=== PATIENT | female | born 1960 | race Caucasian/White ===

== ENCOUNTER 2018-10-16 10:51 | Emergency (ER) | payer MEDICAID ==
[~2018-10-16] VITALS: Ht 154.9 cm; Wt 81.6 kg
[2018-10-16 10:57] VITALS: BP_SYST 144
--- NOTE | 2018-10-16 11:25 | NUR ---
Placed in room 7. Placed on cardiac catheterization technician, blood pressure machine and pulse oximeter. To gown for exam. Side rails up. Report given to Broderick BAEZ.
[2018-10-16 11:28] LABS: BASOPHILS % (AUTO) 0.5 % (0.0-2.0); EOSINOPHILS # (AUTO) 0.1 K/uL (0.0-0.4); EOSINOPHILS % (AUTO) 0.9 % (0.0-4.0); HEMATOCRIT 44.2 % (36-48); HEMOGLOBIN 14.6 g/dL (12.0-16.0); LYMPHOCYTES # (AUTO) 2.5 K/uL (1.0-5.5); LYMPHOCYTES % (AUTO) 34.2 % (20.5-51.5); MEAN CORPUSCULAR HEMOGLOBIN 30 pg (27-31); MEAN CORPUSCULAR HGB CONC 33 % (32-36); MEAN CORPUSCULAR VOLUME 90 fL (79.0-98.0); MONOCYTES # (AUTO) 0.4 K/uL (0.0-1.0); MONOCYTES % (AUTO) 5.6 % (1.7-9.3); NEUTROPHILS # (AUTO) 4.4 K/uL (1.8-7.7); NEUTROPHILS % (AUTO) 58.8 % (40.0-70.0); PLATELET COUNT (AUTO) 239 K/uL (130-430); RED CELL DISTRIBUTION WIDTH 12.6 % (9.0-15.0); WHITE BLOOD COUNT (AUTO) 7.4 K/uL (4.8-10.8)
--- NOTE | 2018-10-16 11:40 | NUR ---
PATIENT SITTING UP ON BED. AAOX4. RESPIRATIONS EVEN AN DUNLABORED. NO SOB AT THIS TIME. SPEAKING FULL SENTENCES. PT WITH C/O ACHING JAW PAIN WHICH RADIATES TO THE LEFT SIDE OF CHEST AND LEFT ARM SINCE 0830AM TODAY. PAIN = 4/10 AT THIS TIME; TOLERABLE VERBALIZED. NO OBJECTIVE S/SX OF PAIN OBSERVED. REST, RELAXATION, AND DEEP BREATHING ENCOURAGED. WILL CONTINUE TO MONITOR. AWAITING LAB RESULTS.
[2018-10-16] MEDS ORDERED: ASPIRIN 81 MG TAB.CHEW PO ONE (11:45)
[2018-10-16 11:49] LABS: ANION GAP 9 (5-15); CALCIUM 9.6 mg/dL (8.4-11.0); CHLORIDE 102 mmol/L (98-107); CREATININE 0.92 mg/dL (0.55-1.30); GLUCOSE 99 mg/dL (70-99); POTASSIUM 4.4 mmol/L (3.5-5.1); SODIUM SERUM 142 mmol/L (136-145); UREA NITROGEN, BLOOD 14 mg/dL (8-21)
--- NOTE | 2018-10-16 11:50 | NUR ---
ER Dr. REDDY at bedside examining patient.
[2018-10-16 11:53] LABS: GFR AFRICAN AMERICAN 81 mL/min (>90); INR 0.9 (0.8-1.2); PROTHROMBIN TIME 9.4 SECS (9.5-12.5)
[2018-10-16 11:57] LABS: ALANINE AMINOTRANSFERASE 31 U/L (12-78); ALBUMIN 3.8 g/dL (3.4-4.8); ASPARTATE AMINOTRANSFERASE 19 U/L (10-37); TOTAL BILIRUBIN 0.3 mg/dL (0.0-1.0)
--- NOTE | 2018-10-16 13:00 | NUR ---
PATIENT RESTING COMFORTABLY ON BED. PT IN NO ACUTE DISTRESS AND IN GOOD CONDITION. PT VERBALIZED RELIEF FROM PAIN. PAIN = 0/10. WILL CONTINUE TO MONITOR.
--- NOTE | 2018-10-16 14:00 | NUR ---
Patient resting quietly. No acute distress noted.
[2018-10-16 14:35] VITALS: BP_SYST 125
--- NOTE | 2018-10-16 14:35 | NUR ---
Patient given written and verbal discharge instructions and verbalizes understanding. ER MD discussed with patient the results and treatment provided. Patient in stable condition. ID arm band removed. No Rx given. Patient educated on pain management and to follow up with PMD. Pain Scale 0/10. Opportunity for questions provided and answered. Medication side effect fact sheet provided. PATIENT VERBALIZED RELIEF FROM JAW, LEFT SIDE OF CHEST, AND LEFT ARM PAIN. PATIENT IN NO ACUTE DISTRESS AND IN GOOD CONDITION. NOTED WITH A STEADY GAIT.
== END 2018-10-16 14:35 | disposition home or self-care (01) ==
LOC: SED 10:51
DX: R68.84 Jaw pain (principal); R03.0 Elevated blood-pressure reading, without diagnosis of hypertension; Z88.8 Allergy status to other drugs, medicaments and biological substances
CPT/HCPCS: 36415; 71045; 80053; 82550-TC; 83880; 84484; 85025; 85610-TC; 85730-TC; 93005; 99284; J7030

== ENCOUNTER 2020-12-28 21:42 | Emergency (ER) | payer MEDICAID ==
[~2020-12-28] VITALS: Ht 167.6 cm; Wt 81.6 kg
[2020-12-28 21:55] VITALS: BP_SYST 141
--- NOTE | 2020-12-28 21:58 | NUR ---
ER MD WOODS AT BEDSIDE EXAMINING PT
--- NOTE | 2020-12-28 21:58 | NUR ---
Placed in room 07 . Placed on operating room registered nurse, blood pressure machine and pulse oximeter. To gown for exam. Side rails up. Report given to LAN ANALYST CIERRA SANTAMARIA/PORTIA FELICIANO.
--- NOTE | 2020-12-28 22:00 | NUR ---
Pt walked into ED with daughter (lifts and cranes inspector) c/o GHOSH, vomiting that started 2 hours [employer] while at work. 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 Of note, the patients daughter states the patient recently received the second dose of COVID 19 vaccine. The patient has a hx of migraines and states this feels like a migraine episode, with new onset of chills and shakiness.
[2020-12-28] MEDS ORDERED: NACL 0.9% 1,000 ML IV ONE (22:15)
[2020-12-28] MEDS ORDERED: DIPHENHYDRAMINE INJ 50 MG/ML VIAL IVP ONE (22:15)
[2020-12-28] MEDS ORDERED: PROCHLORPERAZINE EDISYLATE 10 MG/2 ML VIAL IVP ONE (22:15)
--- NOTE | 2020-12-28 22:25 | NUR ---
Pt KAI to CT with tech
[2020-12-28 22:26] LABS: BASOPHILS # (AUTO) 0.1 K/uL (0.0-0.2); BASOPHILS % (AUTO) 0.4 % (0.0-2.0); EOSINOPHILS # (AUTO) 0.1 K/uL (0.0-0.4); EOSINOPHILS % (AUTO) 0.3 % (0.0-4.0); HEMATOCRIT 41.6 % (36-48); HEMOGLOBIN 13.7 g/dL (12.0-16.0); LYMPHOCYTES # (AUTO) 2.2 K/uL (1.0-5.5); LYMPHOCYTES % (AUTO) 15.1 % (20.5-51.5); MEAN CORPUSCULAR HEMOGLOBIN 30 pg (27-31); MEAN CORPUSCULAR HGB CONC 33 % (32-36); MEAN CORPUSCULAR VOLUME 90 fL (79.0-98.0); MONOCYTES # (AUTO) 0.7 K/uL (0.0-1.0); MONOCYTES % (AUTO) 4.9 % (1.7-9.3); NEUTROPHILS # (AUTO) 11.5 K/uL (1.8-7.7); NEUTROPHILS % (AUTO) 79.3 % (40.0-70.0); PLATELET COUNT (AUTO) 208 K/uL (130-430); RED BLOOD CELL COUNT(AUTO) 4.61 MIL/uL (4.2-6.2); RED CELL DISTRIBUTION WIDTH 13.2 % (9.0-15.0); WHITE BLOOD COUNT (AUTO) 14.5 K/uL (4.8-10.8)
--- NOTE | 2020-12-28 22:28 | NUR ---
Pt back from CT
[2020-12-28 22:38] LABS: CALCIUM 8.8 mg/dL (8.4-11.0); CREATININE 0.99 mg/dL (0.55-1.30); POTASSIUM 4.1 mmol/L (3.5-5.1)
--- NOTE | 2020-12-28 23:30 | NUR ---
Pt resting comfortably in bed, respirations even and unlabored, pt states she is feeling much better.
[2020-12-29 00:18] LABS: BILIRUBIN,URINE NEGATIVE (NEGATIVE); BLOOD, URINE NEGATIVE (NEGATIVE); CLARITY/URINE SLIGHTLY HAZY (CLEAR); COLOR,URINE YELLOW (YELLOW); GLUCOSE,URINE NEGATIVE (NEGATIVE); KETONES,URINE 1+ (NEGATIVE); LEUKOCYTE ESTERASE ,URINE NEGATIVE (NEGATIVE); NITRITE, URINE NEGATIVE (NEGATIVE); PH,URINE 8.5 (5.0-8.0); PROTEIN URINE NEGATIVE (NEGATIVE); UROBILINOGEN,URINE 0.2 (0.2-1.0)
[2020-12-29 00:45] VITALS: BP_SYST 137
--- NOTE | 2020-12-29 00:45 | NUR ---
Patient given written and verbal discharge instructions and verbalizes understanding. ER MD discussed with patient the results and treatment provided. Patient in stable condition. ID arm band removed. IV catheter removed intact and dressing applied, no active bleeding. Opportunity for questions provided and answered.
== END 2020-12-29 00:45 | disposition home or self-care (01) ==
LOC: SED 21:42
DX: T65.891A Toxic effect of other specified substances, accidental (unintentional), initial encounter (principal); D72.829 Elevated white blood cell count, unspecified; Z88.8 Allergy status to other drugs, medicaments and biological substances; Y92.89 Other specified places as the place of occurrence of the external cause
CPT/HCPCS: 36415; 36600; 70450; 76376; 80048; 81003; 82803; 85025; 96361; 96374; 96375; 99284; J0780; J1200; J7030

== ENCOUNTER 2021-05-04 22:12 | Emergency (ER) | payer MEDICAID ==
[~2021-05-04] VITALS: Ht 160 cm; Wt 81.6 kg
[2021-05-04 22:32] VITALS: BP_SYST 150
[2021-05-04] MEDS ORDERED: HYDROcodone/ACETAMIN 7.5-325 MG TAB PO ONE (23:15)
[2021-05-04 23:18] LABS: BASOPHILS # (AUTO) 0.1 K/uL (0.0-0.2); EOSINOPHILS # (AUTO) 0.2 K/uL (0.0-0.4); EOSINOPHILS % (AUTO) 1.9 % (0.0-4.0); HEMATOCRIT 41.4 % (36-48); HEMOGLOBIN 13.9 g/dL (12.0-16.0); LYMPHOCYTES # (AUTO) 3.1 K/uL (1.0-5.5); LYMPHOCYTES % (AUTO) 38.7 % (20.5-51.5); MEAN CORPUSCULAR HEMOGLOBIN 30 pg (27-31); MEAN CORPUSCULAR HGB CONC 34 % (32-36); MEAN CORPUSCULAR VOLUME 91 fL (79.0-98.0); MONOCYTES # (AUTO) 0.6 K/uL (0.0-1.0); MONOCYTES % (AUTO) 7.6 % (1.7-9.3); NEUTROPHILS # (AUTO) 4.1 K/uL (1.8-7.7); NEUTROPHILS % (AUTO) 50.8 % (40.0-70.0); PLATELET COUNT (AUTO) 245 K/uL (130-430); RED BLOOD CELL COUNT(AUTO) 4.57 MIL/uL (4.2-6.2); RED CELL DISTRIBUTION WIDTH 13.1 % (9.0-15.0); WHITE BLOOD COUNT (AUTO) 8.1 K/uL (4.8-10.8)
[2021-05-04 23:42] LABS: ANION GAP 12 (5-15); CHLORIDE 105 mmol/L (98-107); GLUCOSE 106 mg/dL (70-99); POTASSIUM 4.1 mmol/L (3.5-5.1); SODIUM SERUM 141 mmol/L (136-145)
[2021-05-04 23:43] LABS: ALANINE AMINOTRANSFERASE 35 U/L (12-78); ALBUMIN 3.5 g/dL (3.4-4.8); ASPARTATE AMINOTRANSFERASE 20 U/L (10-37); CALCIUM 8.4 mg/dL (8.4-11.0); CREATININE 1.15 mg/dL (0.55-1.30); GFR AFRICAN AMERICAN 62 mL/min (>90); TOTAL BILIRUBIN 0.2 mg/dL (0.0-1.0); UREA NITROGEN, BLOOD 22 mg/dL (8-21)
[2021-05-04 23:44] LABS: LIPASE 132 U/L (73-393)
[2021-05-05] MEDS ORDERED: CIPR500T5 PO (01:36)
[2021-05-05] MEDS ORDERED: METR500T PO (01:36)
[2021-05-05 01:50] VITALS: BP_SYST 144
== END 2021-05-05 01:50 | disposition home or self-care (01) ==
LOC: SED 22:12
DX: K57.92 Diverticulitis of intestine, part unspecified, without perforation or abscess without bleeding (principal); Z88.8 Allergy status to other drugs, medicaments and biological substances; Z79.899 Other long term (current) drug therapy
CPT/HCPCS: 36415; 76376; 80053; 83690; 84484; 85025; 99284

== ENCOUNTER 2021-05-07 18:10 | Emergency (ER) | payer MEDICAID ==
[~2021-05-07] VITALS: Ht 160 cm; Wt 80.7 kg
[~2021-05-07 18:10] MED LIST: CIPR500T5 PO; METR500T PO
[2021-05-07 18:29] VITALS: BP_SYST 126
--- NOTE | 2021-05-07 20:30 | NUR ---
CALLED PT NAME IN THE WR,NO ANSWER.
--- NOTE | 2021-05-07 20:35 | NUR ---
CALLED PT NAME IN THE WR,NO ANSWER.
--- NOTE | 2021-05-07 20:40 | NUR ---
CALLED PT NAME IN THE WR,NO ANSWER.
== END 2021-05-07 20:40 | disposition left against medical advice (07) ==
LOC: SED 18:10
DX: R10.9 Unspecified abdominal pain (principal); Z53.21 Procedure and treatment not carried out due to patient leaving prior to being seen by health care provider

== ENCOUNTER 2022-07-14 17:07 | Emergency (ER) | payer MEDICAID ==
[~2022-07-14] VITALS: Ht 160 cm; Wt 81.6 kg
[2022-07-14 17:10] VITALS: BP_SYST 131
--- NOTE | 2022-07-14 17:10 | NUR ---
BROUGHT TO TRIAGE TENT AND TRIAGED, AWAITING ER MD AND BED AVAILABILITY
--- NOTE | 2022-07-14 17:20 | NUR ---
Pt brought by , A&Ox4, pt presents to ER with cough /congestion, O2 97%, afebrile, skin pink and warm , cap refill <3, VSS
--- NOTE | 2022-07-14 20:20 | NUR ---
Dr Madrigal evaluating patient in the tent
[2022-07-14] MEDS ORDERED: ALBMDI INH (20:23)
[2022-07-14 20:45] VITALS: BP_SYST 131
--- NOTE | 2022-07-14 20:48 | NUR ---
Patient given written and verbal discharge instructions and verbalizes understanding. ER MD discussed with patient the results and treatment provided. Patient in stable condition. ID arm band removed. Rx of Albuterol given. Patient educated on pain management and to follow up with PMD. Pain Scale 2/10 Opportunity for questions provided and answered. Medication side effect fact sheet provided.
== END 2022-07-14 20:45 | disposition home or self-care (01) ==
LOC: SED 17:07
DX: B34.9 Viral infection, unspecified (principal); R05.9 Cough, unspecified; R50.9 Fever, unspecified; R51.9 Headache, unspecified; Z79.899 Other long term (current) drug therapy; Z20.822 Contact with and (suspected) exposure to COVID-19
CPT/HCPCS: 36415; 71045; 99284

== ENCOUNTER 2023-04-22 16:03 | Emergency (ER) | payer MEDICAID ==
[~2023-04-22] VITALS: Ht 157.5 cm; Wt 84.8 kg
[~2023-04-22 16:03] MED LIST changes: +ALBMDI INH
[2023-04-22 16:06] VITALS: BP_SYST 163; PULSE 108; RESP 18; TEMP 98.3; O2SAT 98
[2023-04-22] MEDS ORDERED: guaiFENesin/DEXTROMETHORPHAN 10 ML UDC PO ONE (16:30)
--- NOTE | 2023-04-22 16:36 | NUR ---
BIB [facility] FOR COUGH X3DAYS. PT AFEBRILE UPON CHECKING 97F, A/OX4, DENIES SOB AND CHESTPAIN. ATTACHED TO MONITOR FOR CONTINUED MONITORING.
[2023-04-22] MEDS ORDERED: DEXAMETHASONE SOD PHOSPHATE 10 MG/ML VIAL IM ONE (17:00)
[2023-04-22] MEDS ORDERED: PRED20TA PO (17:56)
[2023-04-22] MEDS ORDERED: IBUP-1969 PO (17:56)
[2023-04-22] MEDS ORDERED: BENZ100C92 PO (17:56)
--- NOTE | 2023-04-22 18:15 | NUR ---
ER at bedside examining patient.
--- NOTE | 2023-04-22 18:23 | NUR ---
Patient given written and verbal discharge instructions and verbalizes understanding. ER MD discussed with patient the results and treatment provided. Patient in stable condition. ID arm band removed. IV catheter removed intact and dressing applied, no active bleeding. Rx of IBUPROFEN PREDNISONE AND BENZONATATE given. Patient educated on pain management and to follow up with PMD. Opportunity for questions provided and answered. Medication side effect fact sheet provided.
[2023-04-22 18:24] VITALS: BP_SYST 163; PULSE 108; RESP 18; TEMP 98.3; O2SAT 95
== END 2023-04-22 18:24 | disposition home or self-care (01) ==
LOC: SED 16:03
DX: J06.9 Acute upper respiratory infection, unspecified (principal); J04.0 Acute laryngitis; R05.9 Cough, unspecified; Z88.8 Allergy status to other drugs, medicaments and biological substances; Z79.899 Other long term (current) drug therapy; Z20.822 Contact with and (suspected) exposure to COVID-19
CPT/HCPCS: 99285; 71045; 87426; 36415; 93005; 94644; 96372; 87804 ×2; J1100